=== PATIENT | male | born 1960 | race Caucasian/White ===

== ENCOUNTER 2022-10-05 06:50 | Inpatient (IN) ==
[~2022-10-05 06:50] MED LIST: Buffered Lidocaine 1% SYRIN 1 ml INTRADERM ONE; Famotidine IV 10 MG/ML 2 ml VIAL (20 mg) IV ONE; Lactated Ringers 1000 ml BAG 1,000 ML IV SCH
[2022-10-05] MEDS ORDERED: Famotidine IV 10 MG/ML 2 ml VIAL (20 mg) ONE (07:51)
[2022-10-05] MEDS ORDERED: ceFAZolin *3* GM in NS PREMIX 3 GM/100 ML BAG IV ONE (07:51)
[2022-10-05] MEDS ORDERED: ROPIVACAINE 5 MG/ML 30 ML BTL (0.5%) ONE ×2 (08:40→08:59)
[2022-10-05] MEDS ORDERED: Midazolam 2 mg/2 ml VIAL 1 mg/ml 2 ml VIAL (2 mg) ONE ×2 (08:44→09:07)
[2022-10-05] MEDS ORDERED: fentaNYL 100 mcg/2 ml 50 MCG/ML VIAL ONE (09:07)
[2022-10-05] MEDS ORDERED: Ondansetron 4 mg VIAL 2 MG/ML 2 ml VIAL ONE (09:07)
[2022-10-05] MEDS ORDERED: Dexamethasone IV 4 MG/ML VIAL 1 ml VIAL ONE (09:07)
[2022-10-05] MEDS ORDERED: Phenylephrine IV 10 MG/ML 1 ml VIAL ONE (09:10)
[2022-10-05] MEDS ORDERED: Propofol 10 mg/ml 100 ML BTL 100 ML ONE ×2 (09:12→09:13)
[2022-10-05] MEDS ORDERED: Ketamine HCL 50 mg/ml 10 ml VIAL (500 MG) ONE (09:55)
[2022-10-05] MEDS ORDERED: Phenylephrine 1% NASAL 15 ML BOT ONE (10:12)
[2022-10-05] MEDS ORDERED: Naloxone 0.4 mg VIAL 0.4 mg/ml 1 ml VIAL IV PRN (10:52)
[2022-10-05] MEDS ORDERED: Ondansetron 4 mg VIAL 2 MG/ML 2 ml VIAL IV PRN ×2 (10:52→12:41)
[2022-10-05] MEDS ORDERED: HYDROmorphone 1 MG/1 ML SYRINGE IV PRN (10:52)
[2022-10-05] MEDS ORDERED: Labetalol IV 5 MG/ML 20 ml VIAL ONE (11:14)
[2022-10-05] MEDS ORDERED: HYDROmorphone 1 MG/1 ML SYRINGE ONE (12:40)
[2022-10-05] MEDS ORDERED: Magnesium Hydroxide LIQ 30 ML UDC PO PRN (12:41)
[2022-10-05] MEDS ORDERED: Ondansetron ODT 4 mg TAB 4 MG TAB PO PRN (12:41)
[2022-10-05] MEDS ORDERED: Morphine 2 MG/ML SYRINGE IV PRN (12:41)
[2022-10-05] MEDS ORDERED: Lactulose 30 ml UDC PO PRN (12:41)
[2022-10-05] MEDS ORDERED: Lactated Ringers 1000 ml BAG 1,000 ML IV SCH (13:00)
[2022-10-05] MEDS: ceFAZolin 1 GM ADVAN 1 GM in NS 0.9% 50 ML 50 ML IVPB SCH (18:15)
[2022-10-05] MEDS: Magnesium Hydroxide LIQ 30 ML UDC PO SCH (21:26)
[2022-10-05] MEDS: Lactated Ringers 1000 ml BAG 1,000 ML IV SCH (22:23)
[2022-10-06] MEDS: ceFAZolin 1 GM ADVAN 1 GM in NS 0.9% 50 ML 50 ML IVPB SCH ×2 (02:14→09:44)
[2022-10-06] MEDS: Lactated Ringers 1000 ml BAG 1,000 ML IV SCH (04:29)
[2022-10-06 05:57] LABS: Hematocrit 39 % (42-52); Hemoglobin 12.8 g/dL (14.0-18.0); Mean Platelet Volume 9.3 fL (7.4-10.4); Platelet Count 210 10^3/uL (150-450)
[2022-10-06 06:19] LABS: Calcium 8.9 mg/dL (8.6-10.3); Potassium 4.2 mmol/L (3.5-5.0); eGFR CKD-EPI 71.4 (>60)
[2022-10-06] MEDS ORDERED: Vitamin THERAPEUTIC TAB PO SCH (09:00)
[2022-10-06] MEDS: Magnesium Hydroxide LIQ 30 ML UDC PO SCH (09:25)
[2022-10-06 11:39] VITALS: BP 127/69
== END 2022-10-06 13:15 | disposition home or self-care (01) | DRG 302 ==
LOC: AA 06:50 → INTOOBSV 06:50 → SSU 14:36
PROVIDERS: ADMIT Orthopaedic Surgery Adult Reconstructive Orthopaedic Surgery; ATTEND Orthopaedic Surgery Adult Reconstructive Orthopaedic Surgery

== ENCOUNTER 2024-01-24 10:04 | Inpatient (IN) ==
[2024-01-24] MEDS ORDERED: Famotidine IV 10 MG/ML 2 ml VIAL (20 mg) ONE (10:38)
[2024-01-24] MEDS ORDERED: cefTRIAXone 2 gm/50 mL D5W 2 GM/50 ML BAG IV ONE (10:38)
[2024-01-24] MEDS: Lactated Ringers 1000 ml BAG 1,000 ML IV SCH ×2 (10:52→18:28)
[2024-01-24] MEDS: Famotidine IV 10 MG/ML 2 ml VIAL (20 mg) IV ONE (10:52)
[2024-01-24 11:02] LABS: Rapid COVID-19 Molecular Undetected (Undetected)
[2024-01-24] MEDS ORDERED: ceFAZolin 2 GM PREMIX 2 GM/50 ML BAG ONE (11:23)
[2024-01-24] MEDS ORDERED: ROPIVACAINE 5 MG/ML 30 ML BTL (0.5%) ONE ×2 (11:57→12:19)
[2024-01-24] MEDS ORDERED: fentaNYL 100 mcg/2 ml 50 MCG/ML VIAL ONE (12:19)
[2024-01-24] MEDS ORDERED: Midazolam 2 mg/2 ml VIAL 1 mg/ml 2 ml VIAL (2 mg) ONE ×2 (12:19→12:53)
[2024-01-24] MEDS ORDERED: HYDROmorphone 1 MG/1 ML SYRINGE IV PRN (13:30)
[2024-01-24] MEDS ORDERED: fentaNYL 100 mcg/2 ml 50 MCG/ML VIAL IV PRN (13:30)
[2024-01-24] MEDS ORDERED: Ondansetron 4 mg VIAL 2 MG/ML 2 ml VIAL IV PRN ×2 (13:30→16:00)
[2024-01-24] MEDS ORDERED: Naloxone 0.4 mg VIAL 0.4 mg/ml 1 ml VIAL IV PRN (13:30)
[2024-01-24] MEDS ORDERED: ceFAZolin VIAL VIAL ONE (13:30)
[2024-01-24] MEDS ORDERED: Tranexamic Acid 1,000 MG/10 ML SDV ONE (13:48)
[2024-01-24] MEDS ORDERED: Lidocaine 2% PF 5 ML VIAL ONE (14:15)
[2024-01-24] MEDS ORDERED: Propofol 10 MG/ML 20 ML BTL ONE (14:15)
[2024-01-24] MEDS ORDERED: Magnesium Hydroxide LIQ 30 ML UDC PO PRN (16:00)
[2024-01-24] MEDS ORDERED: Ondansetron ODT 4 mg TAB 4 MG TAB PO PRN (16:00)
[2024-01-24] MEDS ORDERED: Lactulose 30 ml UDC PO PRN (16:00)
[2024-01-24] MEDS ORDERED: Morphine 2 MG/ML SYRINGE IV PRN (16:00)
[2024-01-24] MEDS: Magnesium Hydroxide LIQ 30 ML UDC PO SCH (20:58)
[2024-01-24] MEDS: ceFAZolin 1 GM ADVAN 1 GM in NS 0.9% 50 ML 50 ML IVPB SCH (21:02)
[2024-01-24] MEDS: Buffered Lidocaine 1% SYRIN 1 ml INTRADERM ONE (21:27)
[2024-01-25 06:20] VITALS: BP 138/78
[2024-01-25 06:22] LABS: Hemoglobin 13.3 g/dL (13.2-16.3); Mean Platelet Volume 9.3 fL (7.5-11.2); Platelet Count 214 10^3/uL (150-450)
[2024-01-25 06:45] LABS: Calcium 9.1 mg/dL (8.6-10.3); Creatinine, Serum 1.09 mg/dL (0.67-1.17); Potassium 4.3 mmol/L (3.5-5.0); eGFR CKD-EPI 76.7 (>60)
[2024-01-25] MEDS: Vitamin THERAPEUTIC TAB PO SCH (09:50)
== END 2024-01-25 13:20 | disposition home or self-care (01) | DRG 302 ==
LOC: AA 10:04 → OBSVTOIN 10:04 → INTOOBSV 10:04 → SSU 17:46
PROVIDERS: ADMIT Orthopaedic Surgery Adult Reconstructive Orthopaedic Surgery; ATTEND Orthopaedic Surgery Adult Reconstructive Orthopaedic Surgery